=== PATIENT | female | born 1975 | race Caucasian/White ===

== ENCOUNTER → 2024-07-27 | Outpatient (CLI) | payer OTHER | LOC: MC.RAD 08:10 | DX: Z01.419 Encounter for gynecological examination (general) (routine) without abnormal findings (principal); Z12.31 Encounter for screening mammogram for malignant neoplasm of breast ==

== ENCOUNTER → 2024-08-03 | Outpatient (CLI) | payer OTHER | LOC: MC.RAD 13:59 | DX: N63.11 Unspecified lump in the right breast, upper outer quadrant (principal) ==